=== PATIENT | male | born 1965 | race Caucasian/White ===

== ENCOUNTER 2025-05-14 20:42 | Emergency (ER) | payer BC ==
[2025-05-14] MEDS ORDERED: Acetaminophen/HYDROcodone 325-5 MG Tab PO ONE (21:37)
[2025-05-14] MEDS: predniSONE 10 MG Tab PO ONE (22:05)
[2025-05-14] MEDS ORDERED: predniSONE 10 MG Tab ONE (22:07)
== END 2025-05-14 22:12 | disposition home or self-care (01) ==
LOC: JD.ED 20:42
DX: M25.551 Pain in right hip (principal); I10 Essential (primary) hypertension; Z91.048 Other nonmedicinal substance allergy status
CPT/HCPCS: 99283; J7512